=== PATIENT | male | born 1945 | race Caucasian/White ===

== ENCOUNTER 2021-02-01 07:26 | Day surgery (SDC) | payer OTHER, MEDICARE ==
[~2021-02-01] VITALS: Ht 185.4 cm; Wt 86.2 kg
[~2021-02-01 07:26] MED LIST: ALLERGY RELIEF180 MG PO; ASA81BEC PO; ATORVASTATIN CA80 MG PO; CARVEDILOL6.25 M1 PO; FAMOTIDINE 10 M10 MG PO; LOSARTAN POTASS50 MG PO; METFORMIN HCL500 MG PO
[2021-02-01 08:46] VITALS: BP 132/78
--- NOTE | 2021-02-01 11:48 | EKG ---
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
[2021-02-01] MEDS ORDERED: HYDROCODON-ACE1 EAC7 PO ×2 (11:50→11:51)
[2021-02-01 12:04] VITALS: BP 132/78
--- NOTE | 2021-02-03 12:14 | O ---
[facility] [place] [address] OPERATIVE REPORT Name: RACHID MICHELLE Room #: DEP [facility].#: [id number] Admission: 02/01/21 Attend Phys: Wilmer Vallejo MD Discharge: 02/01/21 Date of : 47 Report #: [id number] THIS REPORT FOR: cc: Nelly Lopez MD, Stany A. MD Chu,Wilmer Painting MD ~ DATE OF SERVICE: 02/01/2021 PREOPERATIVE DIAGNOSIS: Symptomatic right inguinal hernia. POSTOPERATIVE DIAGNOSIS: Symptomatic right inguinal hernia, indirect nature, indirect defect. PROCEDURE PERFORMED: Laparoscopic properitoneal repair of right inguinal hernia with mesh. SURGEON: Wilmer Vallejo MD ANESTHESIA: General anesthesia. COMPLICATIONS: None. BLOOD LOSS: 5 mL. PROCEDURE NOTE: With the patient under general anesthesia, the Hook catheter was placed, the abdomen was prepped and draped in sterile fashion. Timeout was performed. Prior to the prepping of the abdomen, I removed the ostomy bag on his left side and it looked clean. A small piece of 4 x 4 was placed over the ostomy and an Op-Site was placed over this area. The prep included the Op-Site. The Op-Site was excluded from the field with towels. The patient has a midline incision. Care was taken to avoid the midline incision. A small incision about 2 cm was made lateral to the umbilicus on the right side. It was a transverse incision. After incising through the skin and subcutaneous tissue, the anterior fascia was identified. The anterior fascia was incised transversely. Muscle was spread. The space between the muscle and the posterior fascia was palpated and dissected bluntly. A balloon trocar was placed through the space. Under visualization, 5 mm port was placed in the properitoneal space, in the space between the muscle and the posterior fascia. Dissection was then carried out using cautery and blunt dissection. The properitoneal space was opened up. There is scarring of the peritoneum to the wall and the midline as expected. The properitoneal space was opened up starting laterally and then medially. Inferiorly, the properitoneal space opened up well and the José Manuel's ligament was isolated. No direct defect was found. If there are any indirect defect. A second 5 mm trocar was placed in the right lateral abdomen. With further dissection, I noted that air was going into the abdominal cavity, likely through a small defect in the peritoneum. This was not able to be visualized. The [address] [address] OPERATIVE REPORT Name: RACHID MICHELLE Room #: DEP [facility].#: [id number] Admission: 02/01/21 Attend Phys: Wilmer Vallejo MD Discharge: 02/01/21 Date of : 47 Report #: [id number] patient did have an indirect hernia sac. This was fairly large. This was isolated and brought out of the internal ring away from the cord. There was also a moderate sized lipoma that was brought back, the vas was isolated. The rest of the cord was also seen and skeletonized. A large right sided 3DMax lightweight mesh was then placed in the properitoneal space. This was opened up covering the internal ring well. The mesh was tacked superiorly, laterally to the wall with a SorbaFix and then also inferiorly, medially to the José Manuel's ligament, superomedially to the rectus muscle. The mesh seated well. The sac is medial to the mesh. CO2 was evacuated. Trocars removed. At the cut down incision, the posterior fascia was identified, this was grasped with hemostat. The posterior fascia was then opened. Peritoneal cavity was identified and the CO2 was evacuated from the peritoneal cavity. A small posterior fascia defect was closed with a [id number] 0 Vicryl. The anterior fascia was then closed with [id number] 0 Vicryl x2. Skin was irrigated. Skin was closed with 5-0 PDS at the trocar sites. Steri-Strip, Band-Aids applied. A colostomy bag was then placed over the ostomy site. Hook catheter was removed. The patient was taken to recovery room and tolerated the procedure well. <ELECTRONICALLY SIGNED> By: Wilmer Vallejo MD 02/03/21 1214 1051 [id number] Wilmer Vallejo MD /nt
== END 2021-02-01 13:45 | disposition home or self-care (01) ==
LOC: OR 07:26 → TBA 07:40 → OR 09:58
PROVIDERS: ATTEND Surgery
DX: K40.90 Unilateral inguinal hernia, without obstruction or gangrene, not specified as recurrent (principal); I10 Essential (primary) hypertension; E78.5 Hyperlipidemia, unspecified; G47.30 Sleep apnea, unspecified; K21.9 Gastro-esophageal reflux disease without esophagitis; E11.9 Type 2 diabetes mellitus without complications; I25.2 Old myocardial infarction; Z98.890 Other specified postprocedural states; Z79.899 Other long term (current) drug therapy; Z87.442 Personal history of urinary calculi; Z95.1 Presence of aortocoronary bypass graft; Z20.822 Contact with and (suspected) exposure to COVID-19; Z85.038 Personal history of other malignant neoplasm of large intestine; Z87.891 Personal history of nicotine dependence
CPT/HCPCS: 50010; 50101; 50411; 50455; 50507; 50555; 50848; 51297; 52265; 53065; 53307; 56462; 56525; 56526; 58574; 62110; 62900; 70005